=== PATIENT | female | born 2005 | race Caucasian/White ===

== ENCOUNTER 2023-01-10 19:58 | Emergency (ER) | payer MEDICAID ==
[~2023-01-10] VITALS: Ht 160 cm; Wt 74.8 kg
[2023-01-10 20:25] VITALS: BP_SYST 116; PULSE 69; RESP 18; TEMP 98; O2SAT 98
--- NOTE | 2023-01-10 20:34 | NUR ---
EKG in progress at this time
--- NOTE | 2023-01-10 20:35 | NUR ---
Patient triaged and placed in waiting room. VS checked and patient appears in no acute distress at this time. Accompanied by mother, awaiting available bed, and MD notified of need for MSE.
--- NOTE | 2023-01-10 22:26 | NUR ---
Patient ambulatory to bed 4 for evaluation and treatment
--- NOTE | 2023-01-10 23:00 | NUR ---
ER Dr. URBAN at bedside examining patient.
[2023-01-10] MEDS ORDERED: VIS25 PO (23:11)
[2023-01-10] MEDS ORDERED: IBUP-1969 PO (23:11)
[2023-01-10] MEDS ORDERED: KETOROLAC TROMETHAMINE 60 MG/2 ML VIAL IM ONE (23:15)
--- NOTE | 2023-01-10 23:45 | NUR ---
Patient given written and verbal discharge instructions and verbalizes understanding. ER MD URBAN discussed with patient the results and treatment provided. Patient in stable condition. ID arm band removed. IV catheter removed intact and dressing applied, no active bleeding. Rx of IBUPROFEN AND VISTTARIL given. Patient educated on pain management and to follow up with PMD. Pain Scale . Opportunity for questions provided and answered. Medication side effect fact sheet provided.
[2023-01-10 23:52] VITALS: BP_SYST 122; PULSE 62; RESP 16; TEMP 98.3; O2SAT 98
== END 2023-01-10 23:52 | disposition home or self-care (01) ==
LOC: SED 19:58
DX: R07.89 Other chest pain (principal); F41.9 Anxiety disorder, unspecified; R06.02 Shortness of breath; F12.90 Cannabis use, unspecified, uncomplicated; Z79.899 Other long term (current) drug therapy
CPT/HCPCS: 93005; 99283